=== PATIENT | female | born 1955 ===

== ENCOUNTER → 2023-08-03 17:17 | Outpatient (ROUT) | payer OTHER, MEDICAID, SELFPAY ==
[2023-08-03 17:29] LABS: Add Manual Diff / Slide Review NO; Basophils Absolute Auto 100 /uL (0-100); Basophils Percent Auto 1.2 % (0-2); Eosinophils Absolute Auto 300 /uL (0-450); Eosinophils Percent Auto 3.7 % (2-4); Hematocrit 23.7 % (36-46); Hemoglobin 7.9 g/dL (12.0-16.0); Lymphocytes Absolute Auto 1500 /uL (1100-4500); Lymphocytes Percent Auto 15.7 % (25-40); Mean Corpuscular HGB Conc 33.5 % (30-36); Mean Corpuscular Hemoglobin 26.8 PG (26-34); Monocytes Absolute Auto 800 /uL (0-900); Monocytes Percent Auto 8.6 % (3-14); Neutrophils Absolute Auto 6600 /uL (1500-7000); Neutrophils Percent Auto 70.8 % (50-75); Platelet Count 365 X10^3/uL (150-400); Red Blood Cell Count 2.96 X10^6/uL (4.0-5.2); Red Cell Distribution Width 15.4 % (11.6-14.8); White Blood Cell Count 9.4 X10^3/uL (4.5-11.0)
[2023-08-03 17:37] LABS: BUN Creatinine Ratio 49.4 (6-22); Blood Urea Nitrogen 39 mg/dL (7-17); C-Reactive Protein Quant 2.5 mg/dL (<1.0); Estimated Glomerular Filt Rate > 60 mL/min (>60)
[2023-08-03 17:50] LABS: Erythrocyte Sedimentation Rate 59 MM/HR (0-20)
== END ==
PROVIDERS: PCP Family Medicine; Visit Provider Internal Medicine Infectious Disease
DX: T81.30XA Disruption of wound, unspecified, initial encounter (principal); Z96.652 Presence of left artificial knee joint
CPT/HCPCS: 82565; 84520; 85025; 85651; 86140

== ENCOUNTER → 2023-08-10 18:07 | Outpatient (ROUT) | payer OTHER, MEDICAID, SELFPAY ==
[2023-08-10 18:46] LABS: Add Manual Diff / Slide Review NO; Basophils Absolute Auto 100 /uL (0-100); Basophils Percent Auto 0.8 % (0-2); Eosinophils Absolute Auto 200 /uL (0-450); Eosinophils Percent Auto 2.1 % (2-4); Hematocrit 27.2 % (36-46); Hemoglobin 8.7 g/dL (12.0-16.0); Lymphocytes Absolute Auto 2100 /uL (1100-4500); Lymphocytes Percent Auto 23.7 % (25-40); Mean Corpuscular HGB Conc 32.1 % (30-36); Monocytes Absolute Auto 800 /uL (0-900); Monocytes Percent Auto 8.7 % (3-14); Neutrophils Absolute Auto 5700 /uL (1500-7000); Neutrophils Percent Auto 64.7 % (50-75); Platelet Count 452 X10^3/uL (150-400); Red Blood Cell Count 3.36 X10^6/uL (4.0-5.2); Red Cell Distribution Width 15.4 % (11.6-14.8); White Blood Cell Count 8.8 X10^3/uL (4.5-11.0)
[2023-08-10 18:52] LABS: BUN Creatinine Ratio 36.6 (6-22); Blood Urea Nitrogen 26 mg/dL (7-17); C-Reactive Protein Quant 1.5 mg/dL (<1.0); Estimated Glomerular Filt Rate > 60 mL/min (>60)
[2023-08-10 19:20] LABS: Erythrocyte Sedimentation Rate 47 MM/HR (0-20)
== END ==
PROVIDERS: PCP Family Medicine; Visit Provider Internal Medicine Infectious Disease
DX: T81.30XA Disruption of wound, unspecified, initial encounter (principal); Z96.652 Presence of left artificial knee joint
CPT/HCPCS: 82565; 84520; 85025; 85651; 86140